=== PATIENT | male | born 1960 | race Caucasian/White ===

== ENCOUNTER 2023-11-12 11:54 | Emergency (ER) | payer OTHER, SELFPAY ==
[2023-11-12] VITALS (19 sets, daily range): BP systolic 74–107; BP diastolic 51–81; BMI 20.4
--- NOTE | 2023-11-12 13:11 | ED.GENMED ---
History of Present Illness
General
Chief Complaint: Catheter/Tube Problem
Source: patient and records
Time Seen by Provider: 11/12/23 12:38
History of Present Illness
History of Present Illness:
63-year-old male sent in for a broken nephrostomy tube. This apparently occurred while transitioning him. Patient has no acute complaints. He has been at the [facility] short-term. Patient was recently in [facility]. Apparently has started
dialysis recently. Followed by a predatory animal hunter at [place] but was last seen a year ago.
Past History
Past History
ED Past Medical History: Hypercholesterolemia, NIDDM, Other (Renal failure anemia) and Other (Renal failure)
ED Past Surgical History: Urological (Nephrostomy tube.)
Review of Systems
Review of Systems
All Other Systems: Not applicable
Constitutional: Denies fever or chills
Respiratory: Reports no symptoms
Cardiac: Reports no symptoms
Phy Exam
Physical Exam
Physical Exam:
GENERAL: Alert and oriented. Old for stated age. Chronically ill-appearing
EYE: Orbits normal.
NECK: Supple, no significant adenopathy.
ENT: Pharynx without erythema
CARDIAC: Regular rate and rhythm without any obvious murmurs.
LUNGS: Clear breath sounds,normal. Catheter upper chest wall
ABDOMEN: Soft, without focal tenderness or distention. Broken nephrostomy tube posterior back on the left
NEUROLOGICAL: Alert and oriented , grossly non-focal
SKIN: Warm and dry, no rash or lesion, no discoloration, skin intact.
MUSCULOSKELETAL: No edema,no deformity.Good color. Shunt left arm. Good thrill
PSYCH: Normal and appropriate interaction.
Course
Orders/Labs/Results
Orders:
Orders
11/12/23 12:31
EKG [Electrocardiogram (*1)] Urgent
Reason for Study: Fatigue / Weakness
11/12/23 12:32
EKG- Treatment ONCE
11/12/23 12:57
Basic Metabolic Panel Urgent
11/12/23 14:21
CBC/With Diff [Complete Blood Count/With Diff] Urgent
11/12/23 14:36
Potassium Urgent
11/12/23 15:25
Cefepime HCl [Maxipime] 2,000 mg IV NOW STA
11/12/23 23:23
Oxycodone [Roxicodone] 5 mg PO NOW STA
Abnormal Lab Results
11/12/23 11/12/23
12:57 14:21
WBC 18.7 H 10^3/uL
(4.8-10.8)
RBC 2.89 L 10^6/uL
(4.70-6.10)
Hgb 8.4 L g/dL
(13.0-18.0)
Hct 25.3 L %
(39.0-52.0)
RDW 14.6 H %
(11.5-14.5)
Abs Immat Gran (auto) 0.2 H 10^3/uL
(0-0.05)
Absolute Neuts (auto) 16.3 H 10^3/uL
(1.4-6.5)
Absolute Lymphs (auto) 0.9 L 10^3/uL
(1.2-3.4)
Absolute Monos (auto) 1.2 H 10^3/uL
(0.1-0.6)
Immature Gran % 1.0 H %
(0-0.5)
Neutrophils % 86.8 H %
(42.2-75.2)
Lymphocytes % 4.7 L %
(20.5-51.1)
Sodium 126 L mmol/L
(135-145)
Carbon Dioxide 21 L mmol/L
(22-30)
BUN 35 H mg/dl
(9-20)
Creatinine 3.4 H mg/dL
(0.7-1.3)
Calcium 7.7 L mg/dl
(8.4-10.2)
11/12/23 14:21
11/12/23 14:36
Vital Signs
Initial and Last Documented VS:
Initial Vital Signs
Temp Pulse Resp BP Pulse Ox
97.5 F 96 16 74/54 100
11/12/23 12:08 11/12/23 12:08 11/12/23 12:08 11/12/23 12:08 11/12/23 12:08
Last Documented Vital Signs
Temp Pulse Resp BP Pulse Ox
98.3 F 98 29 96/64 93
11/12/23 17:04 11/13/23 00:39 11/12/23 20:30 11/13/23 03:00 11/12/23 19:00
MDM/Problems Addressed
Differential Diagnosis Includes:
Significant lack of information on this patient who was recently at [facility]. Patient's predatory animal hunter is from [place]. I have placed calls to the nursing facility to his primary care physician and was not called back to [facility] where we are awaiting records to his predatory animal hunter who has not seen him in a year. Also contacted interventional radiology to let them aware that he will need a nephrostomy tube replacement.
*Critical Care Note
Total Time (30-74mins, 75-104mins- exclusive of procedures): Not Applicable
Update Note
Update Note:
Patient is remained clinically stable. Multiple phone calls both the [facility], primary care hospital at the facility. Also would contact patient's predatory animal hunter at [facility]. They have accepted him in transfer. Patient would
prefer to be at [facility]. All reasonable given his care is there and his family is there. He clinically stable for transfer. Potassium is stable.
1515... Patient is anemic and has a leukocytosis. However not describing acute infectious symptoms. Will cover with a dose of antibiotics for the potential dislodged tube and a possible infectious etiology related to this
ED Attending Note
-
Portions of this chart may have been created with voice recognition software.� Occasional wrong word or��sound alike� substitutions may have occurred due to the inherent limitations of voice recognition software.
Discharge Plan
Departure
Patient Disposition: Acute Care Hospital
Date of Disposition: 11/12/23
Time of Disposition: 14:58
Discharge Problem:
Dislodged/broken nephrostomy tube, Renal failure/dialysis, Hyponatremia
Prescriptions:
No Action
atorvastatin 80 mg Tablet
80 mg PO HS
sennosides [senna] 8.6 mg Tablet
17.2 mg PO BID
acetaminophen 325 mg Tablet
650 mg PO Q6HPRN PRN (Reason: mild pain)
polyethylene glycol 3350 [Miralax] 17 gram Powder In Packet
17 g PO [id number] PRN (Reason: constipation)
Patient Comments:
11/12/2023: Administer if senna BID does not result in 1 large BM per day
diphenhydramine-zinc acetate 1-0.1 % Cream
1 applic TOPICAL Q8HPRN PRN (Reason: pruritus)
ondansetron HCl [Zofran] 4 mg Tablet
4 mg PO Q6HPRN PRN (Reason: nausea)
clonazepam 0.5 mg Tablet
0.5 mg PO HS
dronabinol 2.5 mg Capsule
5 mg PO DAILY
Patient Comments:
11/12/2023: For 5 days. End Date: 11/15/23
magnesium hydroxide [Milk of Magnesia] 400 mg/5 mL Suspension
30 ml PO HSPRN PRN (Reason: if no bm in 3 days)
sodium bicarbonate 650 mg Tablet
1,300 mg PO Q8H
bisacodyl [Dulcolax (bisacodyl)] 10 mg Suppository
10 mg ME DAILYPRN PRN (Reason: if no results for MOM)
hydroxyzine HCl 10 mg tablet
10 mg PO [id number] PRN (Reason: itching)
oxycodone 5 mg Tablet
5 mg PO Q6HPRN PRN (Reason: moderate to severe pain)
midodrine 10 mg Tablet
5 mg PO .BID ON MOWE
B Complex w-Vit C 27-58-86-5-250 mg Tablet
1 tab PO DAILY
apixaban 2.5 mg Tablet
2.5 mg PO Q12H
Referrals:
UNKNOWN - PT DOES,NOT KNOW [Family Provider] -
Hospital Transfer
Other hospital: [facility]
I certify that the patient requires transfer: Yes
Discussed case with accepting physician: Miki
Reason for transfer: higher level of care
Interventions
Interventions:
*Risk Screen - Suicide Last Done: 11/12/23 13:42
*General Assessment Last Done: 11/12/23 13:42
*Neglect/Abuse Screening Last Done: 11/12/23 13:42
ED- Fall Risk Assessment Last Done: 11/12/23 19:53
*ED COVID-19 Vaccine History Last Done: 11/12/23 13:42
*Nursing Disposition Last Done: 11/13/23 04:24
KL-Kcypgo-Xfceemamxy Assessment Last Done: 11/12/23 13:44
ED-Male Genitourinary Assessment Last Done: 11/12/23 13:44
Discharge Date and Time
Discharge Date/Time: 11/13/23 03:35
Print Language: POLISH
[2023-11-12 13:37] LABS: Blood Urea Nitrogen 35 mg/dl (9-20); Calcium 7.7 mg/dl (8.4-10.2); Carbon Dioxide 21 mmol/L (22-30); Chloride 98 mmol/L (98-107); Estimated Creatinine Clearance 21 ml/min; Glucose 93 mg/dl (70-99); Sodium 126 mmol/L (135-145); eGFR 19.47
[2023-11-12 14:34] LABS: % Basophils 0.1 % (0-2); % Eosinophils 0.9 % (0-6); % Lymphocytes 4.7 % (20.5-51.1); % Monocytes 6.5 % (1.7-9.3); % Neutrophils 86.8 % (42.2-75.2); Absolute Eosinophils 0.2 10^3/uL (0-0.7); Absolute Immature Granulocytes 0.2 10^3/uL (0-0.05); Absolute Lymphocytes 0.9 10^3/uL (1.2-3.4); Absolute Monocytes 1.2 10^3/uL (0.1-0.6); Absolute Neutrophils 16.3 10^3/uL (1.4-6.5); Hematocrit 25.3 % (39.0-52.0); Hemoglobin 8.4 g/dL (13.0-18.0); Mean Corp Hgb Conc. 33.2 g/dL (33.0-37.0); Mean Corpuscular Hgb 29.1 pg (27.0-31.0); Mean Corpuscular Volume 87.5 fL (80.0-94.0); Mean Platelet Volume 9.5 fL (7.4-10.4); Nucleated Red Blood Cells % 0 % (-); Platelet Count 181 10^3/uL (130-400); Red Blood Cell Count 2.89 10^6/uL (4.70-6.10); Red Cell Dist. Width 14.6 % (11.5-14.5); White Blood Cell Count 18.7 10^3/uL (4.8-10.8)
[2023-11-12] MEDS: MAXIPIME 2000 MG IV (16:39)
[2023-11-12] MEDS: ROXICODONE 5 MG PO (23:35)
[2023-11-13] VITALS: BP 96/55
[2023-11-13 01:00] VITALS: BP 95/67
[2023-11-13 02:00] VITALS: BP 90/74
[2023-11-13 03:00] VITALS: BP 96/64
== END 2023-11-13 03:35 | disposition short-term general hospital (02) ==
LOC: EMR 11:54
PROVIDERS: EMERGENCY PHYSICIAN Emergency Medicine
DX: T83.022A Displacement of nephrostomy catheter, initial encounter (principal); Y83.8 Other surgical procedures as the cause of abnormal reaction of the patient, or of later complication, without mention of misadventure at the time of the procedure; Y92.129 Unspecified place in nursing home as the place of occurrence of the external cause; E87.1 Hypo-osmolality and hyponatremia; D63.1 Anemia in chronic kidney disease; N18.6 End stage renal disease; E78.00 Pure hypercholesterolemia, unspecified; E11.22 Type 2 diabetes mellitus with diabetic chronic kidney disease; Z99.2 Dependence on renal dialysis
CPT/HCPCS: 99285; 96374; 80048; 84132; 85025; 93005